=== PATIENT | female | born 1975 | race African-American/Black ===

== ENCOUNTER → 2020-01-30 | Outpatient (CLI) | payer BC ==
[~2020-01-30] MED LIST: DUO-KAPS1 CAP PO; MOTRIN 600600 MG/TAB PO; NO HOME MEDICATIONS; PERCOCET 325 MG1 TA2; PERCOCET 325 MG1 TA2 PO; SLIMQUICK; VITAMIN B COMPL1 T16 PO; [UNRECOGNIZED DRUG - OTHER]
== END ==
LOC: ZCOL.LAB 16:27
DX: R05 Cough (principal); R51 Headache; Z20.828 Contact with and (suspected) exposure to other viral communicable diseases

== ENCOUNTER → 2020-02-19 | Outpatient (CLI) | payer BC | LOC: MC.RAD 09:15 | DX: N63.10 Unspecified lump in the right breast, unspecified quadrant (principal) ==

== ENCOUNTER → 2020-12-31 | Outpatient (CLI) | payer BC | LOC: MC.RAD 13:47 | DX: N63.12 Unspecified lump in the right breast, upper inner quadrant (principal) ==

== ENCOUNTER → 2021-03-17 | Outpatient (CLI) | payer BC | LOC: MC.RAD 09:00 | DX: Z12.31 Encounter for screening mammogram for malignant neoplasm of breast (principal) ==

== ENCOUNTER 2023-06-15 08:13 | Day surgery (SDC) | payer BC ==
[~2023-06-15] VITALS: Ht 161.3 cm; Wt 111.0 kg
[2023-06-15] MEDS ORDERED: GABA (08:33)
[2023-06-15 09:13] VITALS: BP 145/98; PULSE 81; TEMP 97.7
[2023-06-15 09:55] VITALS: BP 132/105; PULSE 84; TEMP 97.6
[2023-06-15 10:10] VITALS: BP 153/104; PULSE 76
[2023-06-15 10:25] VITALS: BP 153/81; PULSE 88
[2023-06-15 10:40] VITALS: BP 134/80; PULSE 86
--- NOTE | 2023-06-15 11:00 | NUR ---
0939 RETURNS TO ROOM 4 PER CART. AWAKE, ALERT. RESP UNLABORED. AMBUALATES TO RECLINER WITH STAND BY ASSIST. DENIES NAUSEA OR ABD PAIN. VITAL SIGNS OBTAINED. FEET ELEVATED. FRIEND IN [place] 1010 TOLERATES PO JUICE WITHOUT NAUSEA 1020 DISCHARGE INSTRUCTIONS REVIEWED. PATIENT VERBALIZES UNDERSTANDING. COPY PROVIDED IN DISCHARGE FOLDER 1040 DR. LARES HERE TO VISIT WITH PATIENT 1050 DRESSES SELF
--- NOTE | 2023-06-15 11:08 | NUR ---
0821 PT AMBULATORY TO BAY 4 WITH STEADY GAIT, BREATHING EVEN AND UNLABORED. PT IS ALERT AND ORIENTED. CONSENTS REVIEWED WITH AND SIGNED BY PT. IV ESTABLISHED. LR INFUSING VIA GRAVITY. CALL LIGHT IN REACH. WARM BLANKET PROVIDED.
== END 2023-06-15 11:00 | disposition home or self-care (01) ==
LOC: SDCO 08:13
DX: Z12.11 Encounter for screening for malignant neoplasm of colon (principal)
CPT/HCPCS: J2704; J7120

== ENCOUNTER 2023-08-22 09:48 | Emergency (ER) | payer BC ==
[~2023-08-22] VITALS: Ht 160 cm; Wt 110.9 kg
[~2023-08-22 09:48] MED LIST changes: +GABA
[2023-08-22 10:03] VITALS: TEMP 98.9
[2023-08-22 11:44] LABS: BASO # 0.1 K/mm3 (0.0-0.2); BASO % 0.7 % (0.0-2.0); EOS # 0.1 K/mm3 (0.0-0.7); EOS % 1.6 % (0.0-4.0); GRAN # 4.9 K/mm3 (1.4-6.5); GRAN % 61.2 % (42.2-75.2); HEMATOCRIT 42.7 % (37.0-47.0); HEMOGLOBIN 13.5 g/dl (12.5-16.0); LYMPH # 2.3 K/mm3 (1.2-3.4); LYMPH % 28.6 % (20.0-51.0); MEAN CELL VOLUME 87 fl (80.0-100.0); MEAN CORPUSCULAR HEMOGLOBIN 27 pg (27-31); MEAN CORPUSCULAR HGB CONC 32 g/dl (33.0-37.0); MEAN PLATELET VOLUME 10.2 fl (7.4-10.4); MONO # 0.6 K/mm3 (0.1-0.6); MONO % 7.5 % (1.7-9.3); PLATELET COUNT 380 K/mm3 (130-400); RED BLOOD COUNT 4.93 M/mm3 (4.10-5.30); REDCELL DISTRIBUTION WIDTH-CV 13.5 % (11.5-14.5)
[2023-08-22 11:46] LABS: PROTHROMBIN TIME 10.8 SECONDS (9.7-12.8)
[2023-08-22 12:06] LABS: ALANINE AMINOTRANSFERASE < 6 U/L (0-55); ALBUMIN 3.6 gm/dL (3.5-5.0); ALKALINE PHOSPHATASE 62 U/L (40-150); ANION GAP 8 mmol/L (7-16); AST,SGOT 15 U/L (5-34); BILIRUBIN,TOTAL 0.6 mg/dL (0.2-1.2); BLOOD UREA NITROGEN 9 mg/dL (7-19); CALCIUM 9.4 mg/dL (8.4-10.2); CARBON DIOXIDE 28 mmol/L (22-29); CHLORIDE 103 mmol/L (98-107); CREATININE, serum 0.94 mg/dL (0.57-1.11); GLUCOSE 85 mg/dL (70-99); POTASSIUM 3.8 mmol/L (3.5-4.5); SODIUM 139 mmol/L (136-145); TOTAL PROTEIN 7.3 gm/dL (6.2-8.1)
[2023-08-22 12:15] VITALS: BP 150/93; PULSE 70
[2023-08-22 12:21] LABS: TROPONIN-I < 0.010 ng/mL (0.00-0.033)
== END 2023-08-22 12:26 | disposition home or self-care (01) ==
LOC: COL.ER 09:48
PROVIDERS: Family Medicine
DX: I10 Essential (primary) hypertension (principal); H11.31 Conjunctival hemorrhage, right eye